=== PATIENT | male | born 1955 | race Caucasian/White ===

== ENCOUNTER 2023-02-18 14:20 | Observation (INO) | payer MEDICARE ==
[2023-02-18] VITALS (33 sets, daily range): BP systolic 87–127; BP diastolic 40–80
[~2023-02-18] VITALS: Ht 177.8 cm; Wt 87.0 kg
[2023-02-18 15:36] LABS: BASO% 0.8 % (0-3); EOS% 2.3 % (0-8); HEMATOCRIT 37.7 % (39.0-50.0); HEMOGLOBIN 11.8 g/dl (14.0-18.0); IMMATURE GRANULOCYTES 0.1 % (0.0-5.0); LYMPH% 18.7 % (15-41); MEAN CELL VOLUME 86.5 fL CALC (80.0-100.0); MEAN CORPUSCULAR HGB 27.1 pG CALC (26.0-32.0); MEAN CORPUSCULAR HGB CONC 31.3 g/dL CAL (32.0-36.0); MONO% 6.9 % (2-13); NEUT% 71.2 % (42-76); RED BLOOD COUNT 4.36 mill/uL (4.70-6.10); RED CELL DISTRI WIDTH 13.9 % (11.5-15.5)
[2023-02-18 15:51] LABS: ALBUMIN 4.6 g/dL (3.2-5.0); ALKALINE PHOSPHATASE 43 u/l (38-126); ANION GAP 14 (6-22 (CALC)); BILIRUBIN, TOTAL 0.6 mg/dL (0.2-1.3); BUN 44 mg/dL (8-23); BUN/CREATININE RATIO 24 (12-20 (CALC)); CARBON DIOXIDE 25 mmol/l (22-30); CHLORIDE 107 mmol/l (95-108); CREATININE 1.8 mg/dL (0.7-1.3); GFR FOR AFR.AMER. 46 ML/MIN (>=60 (CALC)); GFR OTHER RACES 38 ML/MIN (>=60 (CALC)); LIPASE 126 u/l (23-300); POTASSIUM 4.6 mmol/l (3.5-5.1); SGOT/AST 36 u/l (19-48); SODIUM 142 mmol/l (137-146); TOTAL PROTEIN 7.3 g/dL (6.3-8.2)
[2023-02-18] MEDS ORDERED: ATORVASTATIN CA40 MG PO (18:04)
[2023-02-18] MEDS ORDERED: FENOFIBRATE145 MG PO (18:06)
[2023-02-18] MEDS ORDERED: LISINOPRIL5 MG PO (18:07)
[2023-02-18] MEDS ORDERED: ASPIRIN 81 LOW81 MG (18:08)
[2023-02-18] MEDS ORDERED: METFORMIN HCL500 M1 PO (18:09)
[2023-02-18] MEDS ORDERED: VITAMIN B-12500 MCG PO (18:10)
[2023-02-18] MEDS ORDERED: LANTUS100 UNIT SC (18:11)
[2023-02-18] MEDS ORDERED: HUMALOG100 UNIT SC (18:12)
[2023-02-18 20:01] LABS: URINE BILIRUBIN - DIPSTICK NEGATIVE (NEGATIVE); URINE BLOOD DIPSTICK NEGATIVE (NEGATIVE); URINE CLARITY CLEAR; URINE COLOR YELLOW; URINE GLUCOSE - DIPSTICK NEGATIVE (NEGATIVE); URINE KETONE NEGATIVE (NEGATIVE); URINE LEUK ESTERASE NEGATIVE (Negative); URINE NITRITE - DIPSTICK NEGATIVE (Negative); URINE PH 5.5 (4.5-8.0); URINE PROTEIN - DIPSTICK NEGATIVE (NEG-TRACE); URINE SPECIFIC GRAVITY >=1.030; URINE UROBILINOGEN - DIPSTICK 0.2 E.U./dL (0.2)
[2023-02-19 02:55] VITALS: BP 108/56
[2023-02-19 05:48] LABS: BASO% 0.9 % (0-3); EOS% 6.7 % (0-8); HEMATOCRIT 34.4 % (39.0-50.0); HEMOGLOBIN 10.9 g/dl (14.0-18.0); LYMPH% 32.3 % (15-41); MEAN CELL VOLUME 87.5 fL CALC (80.0-100.0); MEAN CORPUSCULAR HGB 27.7 pG CALC (26.0-32.0); MEAN CORPUSCULAR HGB CONC 31.7 g/dL CAL (32.0-36.0); MONO% 11.4 % (2-13); NEUT# 3.21 thou/uL (1.82-7.42); NEUT% 48.7 % (42-76); RED BLOOD COUNT 3.93 mill/uL (4.70-6.10); RED CELL DISTRI WIDTH 13.8 % (11.5-15.5)
[2023-02-19 05:50] VITALS: BP 103/40
[2023-02-19 05:53] LABS: ALBUMIN 3.8 g/dL (3.2-5.0); ALKALINE PHOSPHATASE 40 u/l (38-126); ANION GAP 11 (6-22 (CALC)); BUN 37 mg/dL (8-23); BUN/CREATININE RATIO 27 (12-20 (CALC)); CARBON DIOXIDE 27 mmol/l (22-30); CHLORIDE 109 mmol/l (95-108); CREATININE 1.4 mg/dL (0.7-1.3); GFR FOR AFR.AMER. > 60 ML/MIN (>=60 (CALC)); GFR OTHER RACES 50 ML/MIN (>=60 (CALC)); POTASSIUM 4.6 mmol/l (3.5-5.1); SGOT/AST 33 u/l (19-48); SODIUM 142 mmol/l (137-146)
[2023-02-19 05:54] LABS: BILIRUBIN, TOTAL 0.3 mg/dL (0.2-1.3)
[2023-02-19 08:35] VITALS: BP 112/51
[2023-02-19 08:38] VITALS: BP 117/57
[2023-02-19 09:42] VITALS: BP 112/51
[2023-02-19 09:43] VITALS: BP 117/57
== END 2023-02-19 11:25 | disposition home or self-care (01) ==
LOC: ED 14:20 → ED-I 19:48 → ED 19:57 → MS2 19:58
PROVIDERS: Emergency Medicine; Nurse Practitioner Family; ADMIT Internal Medicine; ATTEND Internal Medicine
DX: R55 Syncope and collapse (principal); N17.9 Acute kidney failure, unspecified; I10 Essential (primary) hypertension; E11.9 Type 2 diabetes mellitus without complications; E78.00 Pure hypercholesterolemia, unspecified; Z79.84 Long term (current) use of oral hypoglycemic drugs; Z79.4 Long term (current) use of insulin